=== PATIENT | female | born 1980 | race Two or more races ===

== ENCOUNTER 2020-12-28 13:50 | Outpatient (CLI) | payer OTHER ==
[2021-01-01] MEDS ORDERED: BUPIVACAINE 0.25% ONE (06:16)
== END 2020-12-28 23:59 | disposition home or self-care (01) ==
LOC: STAR 13:50
PROVIDERS: ATTEND Obstetrics & Gynecology Female Pelvic Medicine and Reconstructive Surgery
DX: Z02.9 Encounter for administrative examinations, unspecified (principal)

== ENCOUNTER 2021-01-01 05:59 | Day surgery (SDC) | payer OTHER ==
[~2021-01-01] VITALS: Ht 162.6 cm; Wt 62.5 kg
[2021-01-01 06:49] VITALS: BP 130/86
[2021-01-01] MEDS ORDERED: VANCOMYCIN 500 MG ONE (06:50)
[2021-01-01] MEDS ORDERED: GENTAMICIN 80 MG/2 ML ONE (06:50)
[2021-01-01] MEDS ORDERED: CHLORHEXIDINE 15 ML UDC ONE (06:55)
[2021-01-01] MEDS ORDERED: LIDOCAINE-MPF 1%, 2ML ONE (06:55)
[2021-01-01] MEDS ORDERED: CHLORHEXIDINE 15 ML UDC PO ONE (07:00)
[2021-01-01] MEDS ORDERED: LIDOCAINE-MPF 1%, 2ML INFIL ONE (07:00)
[2021-01-01] MEDS ORDERED: LACTATED RINGERS 1,000 ML IV SCH (07:00)
[2021-01-01 07:15] LABS: HCG UR SG 1.022 (1.003-1.030)
[2021-01-01] MEDS ORDERED: MIDAZOLAM 1 MG/ML, 2ML ONE (07:53)
[2021-01-01] MEDS ORDERED: FENTANYL PF 250 MCG/5ML ONE (07:54)
[2021-01-01] MEDS ORDERED: LABETALOL 5MG/ML, 20ML IV PRN (09:30)
[2021-01-01] MEDS ORDERED: LORazepam 2 MG/ML, 1ML IVPush PRN (09:30)
[2021-01-01] MEDS ORDERED: HYDROmorphone 1 MG/ML, 1ML INJ IVPush PRN (09:30)
[2021-01-01] MEDS ORDERED: KETOROLAC 30 MG/1 ML IV PRN (09:30)
[2021-01-01] MEDS ORDERED: FENTANYL PF 100 MCG/2ML IV PRN (09:30)
[2021-01-01] MEDS ORDERED: hydrALAzine 20 MG/ML, 1ML IV PRN (09:30)
[2021-01-01] MEDS ORDERED: MEPERIDINE/PF 25MG/0.5ML IVPush PRN (09:30)
[2021-01-01] MEDS ORDERED: METHOCARBAMOL 1,000 MG in DEXTROSE 5% 100 ML IV PRN (09:30)
[2021-01-01] MEDS ORDERED: EPHEDRINE 50 MG/ML, 1ML IVPush PRN (09:30)
[2021-01-01] MEDS ORDERED: ACETAMINOPHEN 325 MG TABLET PO PRN (09:30)
[2021-01-01] MEDS ORDERED: DEXAMETHASONE 4 MG/ML, 1ML ONE (09:41)
[2021-01-01] MEDS ORDERED: GLYCOPYRROLATE 0.2MG/1ML, 5ML ONE (09:41)
[2021-01-01] MEDS ORDERED: METOCLOPRAMIDE 5 MG/ML, 2ML ONE (09:41)
[2021-01-01] MEDS ORDERED: PROPOFOL 10 MG/ML, 20ML ONE (09:41)
[2021-01-01] MEDS ORDERED: CEFAZOLIN 1,000 MG ONE (09:41)
[2021-01-01] MEDS ORDERED: ROCURONIUM 10 MG/ML,10ML ONE (09:41)
[2021-01-01] MEDS ORDERED: NEOSTIGMINE 1 MG/ML, 10ML ONE (09:41)
[2021-01-01] MEDS ORDERED: ONDANSETRON 2MG/ML, 2ML ONE (09:41)
[2021-01-01] MEDS ORDERED: SUCCINYLCHOLINE 20 MG/ML, 10ML ONE (09:41)
[2021-01-01] MEDS ORDERED: KETOROLAC 30 MG/1 ML ONE (09:41)
[2021-01-01] MEDS ORDERED: EPINEPHRINE 1 MG/ML, 1ML INFIL ONE (10:02)
[2021-01-01] MEDS ORDERED: BUPIVACAINE/PF-EPI 0.25% 1:200K INFIL ONE (10:02)
[2021-01-01] MEDS ORDERED: PROPOFOL 50 ML ONE (10:02)
[2021-01-01] MEDS ORDERED: GENTAMICIN 80 MG/2 ML IV ONE (10:03)
[2021-01-01] MEDS ORDERED: VANCOMYCIN 500 MG IVPB ONE (10:04)
[2021-01-01] MEDS ORDERED: OXYcodone 5 MG/5 ML ORAL.SOL UDC ONE (11:32)
[2021-01-01] MEDS ORDERED: MEPERIDINE/PF 25MG/ML,1ML ONE (11:32)
[2021-01-01] MEDS: OXYcodone 5 MG/5 ML ORAL.SOL UDC PO PRN ×2 (11:45→14:23)
== END 2021-01-01 15:50 | disposition home or self-care (01) ==
LOC: OUT 05:59
PROVIDERS: ATTEND Obstetrics & Gynecology Female Pelvic Medicine and Reconstructive Surgery
DX: N87.1 Moderate cervical dysplasia (principal); N92.0 Excessive and frequent menstruation with regular cycle; N94.6 Dysmenorrhea, unspecified; N81.89 Other female genital prolapse; N81.11 Cystocele, midline; N81.6 Rectocele; N81.5 Vaginal enterocele; N39.3 Stress incontinence (female) (male); E11.9 Type 2 diabetes mellitus without complications
CPT/HCPCS: 57265; 57282; 57288; 58552; 81025; 88307; C1771; J0171; J0330; J0690; J1100; J1580; J1885; J2175; J2250; J2405; J2704; J2710; J2765; J3010; J3370; J7120